=== PATIENT | female | born 1980 | race Caucasian/White ===

== ENCOUNTER 2017-11-08 02:30 | Inpatient (IN) ==
[2017-11-08] MEDS ORDERED: Acetaminophen 325 MG TABLET PO PRN (04:22)
[2017-11-08] MEDS ORDERED: Ipratropium/Albuterol Neb 3 ML IH PRN (04:22)
[2017-11-08] MEDS ORDERED: Ondansetron 4 MG/2 ML VIAL IVP PRN (04:23)
[2017-11-08] MEDS ORDERED: Naloxone 0.4 MG/ML INJ IVP PRN (04:23)
--- NOTE | 2017-11-08 04:36 | Internal Med History&Physical ---
Date of Encounter: 11/08/17 Time of Encounter: 04:33 Assessment and Plan (1) Abdominal pain Current visit: No Status: Acute Epigastric and right upper quadrant pain concerning for possible symptomatic acute cholecystitis The patient has severe allergy to penicillins and ciprofloxacin Start Invanz Morphine and Toradol for pain, nothing by mouth, order ultrasound of the right upper quadrant Surgery to follow up Protonix IV for GI prophylaxis and subcutaneous heparin for DVT prophylaxis. Patient will be admitted for observation. Full code. Time spent on this admission 40 minutes Qualifiers: Abdominal location: right upper quadrant Qualified Code(s): R10.11 - Right upper quadrant pain (2) SIRS (systemic inflammatory response syndrome) Current visit: Yes Status: Acute Possibly related to cholecystitis, may discontinue antibiotics if infection not confirmed (3) Transaminitis Current visit: Yes Status: Acute (4) Dehydration Current visit: Yes Status: Acute (5) Depression Current visit: Yes Status: Acute Qualifiers: Depression Type: unspecified Qualified Code(s): F32.9 - Major depressive disorder, single episode, unspecified (6) Iron deficiency Current visit: No Status: Chronic Internal Medicine - H&P: HPI Chief complaint: Abdominal pain Admitted From: Emergency Dept History of present illness: Ms. Hill is a 37 year old female with a past medical history of anxiety, endometriosis, went to the ER at [facility] complaining of abdominal pain that started 1-1/2 weeks ago but got worse yesterday 10 out of 10 in intensity mainly epigastric and radiated to the right upper quadrant and sometimes to the left. The pain got worse after 45 minutes of eating described as stabbing and sharp. They are physician from [facility] called the surgeon photovoltaic fabrication technician who recommended transferring to this hospital in order to have an ultrasound as the CT scan of the abdomen was not able to demonstrate any acute pathology other than a distended gallbladder. The cell count is 15.7 potassium 3.5 AST 160 ALT 84 alkaline phosphatase 154 heart rate was 111, blood pressure 141/103. The patient received Toradol, Zofran, morphine, Flagyl and Protonix. Still complaining of pain and had episodes of nausea and vomiting. She is dehydrated Past Med Surg Social Fam HX - Past Medical History Medical history: asthma, GERD, other (Iron deficiency anemia, endometriosis) Psychiatric history: anxiety, depression - Past Surgical History Surgical History: , other (Dental surgery) - Social History Smoking Status: Never smoker Smokeless Tobacco Status: No Alcohol use: none Drug use: none - Family History Mother Adopted: No Family Member Ethnicity: Non- Living Status: Still Living Hx Family Cardiac Disorders: No Hx Family Respiratory Disorders: Yes (asthma) Hx Family Cancer: No Hx Family GI Disorders: No Hx Family Endocrine Disorder: No Hx Family Neuromuscular Disorders: No Hx Family Neurologic Disorders: No Hx Family HEENT Disorders: No Hx Family Autoimmune Disorders: No - Additional Family History Additional family history: Mother with prediabetes Internal Medicine - H&P: Meds Cetirizine HCl [Zyrtec] 20 mg PO DAILY 05/09/16 [History] FLUoxetine HCl [Prozac] 40 mg PO DAILY 05/09/16 [History] Albuterol Sulfate [Albuterol Inhaler] 2 puff IH Q6HR PRN 11/07/17 [History] Fluticasone/Salmeterol [Advair 100-50 Diskus] 1 each IH DAILY 11/07/17 [History] 3 Allergy/AdvReac Type Severity Reaction Status Date / Time ciprofloxacin Allergy Severe Anaphylaxis Verified 11/07/17 21:57 Penicillins Allergy Severe Anaphylaxis Verified 11/07/17 21:57 All Systems PM: A 10-system review of systems was performed and is negative for pertinent findings except as documented above in the HPI. Review of systems: Abdominal pain, other systems out of the 10 review of were negative - Constitutional Vitals: Temp Pulse Resp BP Pulse Ox 97.6 F 74 17 132/90 98 11/08/17 04:07 11/08/17 04:07 11/08/17 04:07 11/08/17 04:07 11/08/17 04:07 General appearance: Present: A&O X 3, morbidly obese - Head Head exam: Present: atraumatic, normocephalic - Eye Eye exam: Present: PERRL, conjuntiva pink, sclera anicteric Pupils: Present: PERRL - Neck Neck exam general surgery: Present: supple, trachea midline. Absent: lymphadenopathy - Respiratory Respiratory exam: Present: CTAB. Absent: accessory muscle use, rales, rhonchi, wheezes - Cardiovascular Cardiovascular exam: Present: RRR, +S1, +S2. Absent: diastolic murmur, gallop, rubs, systolic murmur - GI/Abdominal GI/Abdominal exam: Present: normal bowel sounds, rebound, soft, tenderness ( Right upper quadrant tenderness, positive rebound), no peritoneal signs. Absent : distended - Extremities Exam Extremities exam: Present: warm, radial pulses palpable and symmetrical. Absent : calf tenderness, cyanotic, pedal edema - Neurological Exam Neurological exam: Present: CN II-XII intact, oriented X3, no focal deficits. Absent: pronater drift, facial droop, speech deficit - Skin Skin exam: Present: dry, intact
[2017-11-08] MEDS: Ketorolac 30 MG/ML VIAL IVP PRN ×2 (06:28→13:16)
[2017-11-08] MEDS: *HR* Heparin 5,000 UNIT/ML VIAL SQ SCH ×3 (06:29→21:35)
[2017-11-08] MEDS: Ertapenem 1,000 MG in Water for inj. (sterile) 20 ML 10 ML IVP SCH (06:34)
[2017-11-08] MEDS: FLUoxetine 20 MG CAPSULE PO SCH (08:36)
[2017-11-08] MEDS: Pantoprazole 40 MG VIAL IVP SCH (08:36)
[2017-11-08 09:07] LABS: Basophils % 0.4 %; Eosinophils # 0.9 K/mcL (0.0-0.6); Eosinophils % 9.9 %; Hematocrit 34.9 % (35.3-44.9); Hemoglobin 10.6 g/dL (11.5-15.4); Immature Granulocytes % 0.3 % (0-4); Immature Platelets 3.2 % (1.1-6.1); Lymphocytes # 1.5 K/mcL (0.6-4.6); Lymphocytes % 16.7 %; Mean Corpuscular HGB Conc 30.4 g/dL (31.6-35.5); Mean Corpuscular Hemoglobin 23.7 pg (28.0-33.3); Mean Corpuscular Volume 78.1 fL (83.0-100.0); Mean Platelet Volume 10.1 fL (9.4-12.4); Monocytes # 0.7 K/mcL (0.0-1.3); Monocytes % 7.4 %; Platelet Count 326 K/mcL (140-400); Red Blood Count 4.47 M/mcL (3.82-4.97); Red Cell Distribution Width 21.9 % (11.5-14.5); Segmented Neutrophils % 65.3 %
[2017-11-08 09:33] LABS: Alanine Aminotransferase 143 Units/L (7-52); Albumin 3.6 g/dL (3.5-5.7); Albumin/Globulin Ratio 1.4 (1.1-2.2); Alkaline Phosphatase 166 Units/L (34-104); Aspartate Amino Transferase 198 Units/L (13-39); BUN/Creatinine Ratio 8 (6-26); Bilirubin,Total 1.4 mg/dL (0.3-1.0); Blood Urea Nitrogen 7 mg/dL (6-20); Calcium 8.3 mg/dL (8.6-10.3); Carbon Dioxide 25 mEq/L (23-29); Chloride 108 mEq/L (98-107); Globulin 2.5 g/dL (2.4-3.5); Glucose 90 mg/dL (70-105); Osmolality,Calculated 284 (280-300); Potassium 3.7 mEq/L (3.5-5.1); Sodium 138 mEq/L (136-145); Total Protein 6.1 g/dL (6.4-8.9); eGFR For African Americans > 60 (> 60); eGFR For Non-African Americans > 60 (> 60)
[2017-11-08] MEDS: Ondansetron 4 MG/2 ML VIAL IVP PRN ×2 (14:23→21:42)
--- NOTE | 2017-11-08 15:58 | General Surgery Consult Note ---
<Jodi Christensen - Last Filed: 11/08/17 15:47> Date of Encounter: 11/08/17 Time of Encounter: 06:55 Assessment and Plan (1) Acalculous cholecystitis Current Visit: Yes Status: Acute Acalculous cholecysititis is most likely per CT findings showing no stones. Concern for appropriate function of gallbladder. CT abdomen at [facility] showed a distended gallbladder but no other acute pathology Patient has epigastric and RUQ pain, nausea, vomiting afebrile, WBC WNL 9.2 improved AST 198, ALT 143, total bili 1.4, alk phos 166 hepatobiliary scan ordered Ultrasound ordered IV ertapenem NPO pain control re-check CMP History of Present Illness Consult date: 11/08/17 Reason for consult: abdominal pain Requesting physician: Yadiel Luis History of present illness: Ms. Hill is a 37yo female with a past medical history of who presented to [facility] complaining of abdominal pain for about a week and a half that has progressively worsened. The pain is localized in her epigastric and right upper quadrant. She describes as sharp. Nothing makes a better. She admits to nausea, vomiting. Denied chest pain, shortness of breath, fever, chills. She has never had this before. She was a transfer from [facility] ER where CT scan of the abdomen showed no acute pathology other than a distended gallbladder. They transferred her for further workup. Lab work there showed WBC 15.7, AST 160 , AST 160, ALT 84, alkaline phosphatase 154. Past Med Surg Social Fam HX - Past Medical History Medical history: asthma, GERD, other (Iron deficiency anemia, endometriosis) Psychiatric history: anxiety, depression - Past Surgical History Surgical History: , other (Dental surgery) - Social History Smoking Status: Never smoker Smokeless Tobacco Status: No Alcohol use: none Drug use: none - Family History Father Living Status: Still Living Grandmother Living Status: Cause of : amyloidosis gallbladder/liver Mother Adopted: No Family Member Ethnicity: Non- Living Status: Still Living Hx Family Cardiac Disorders: No Hx Family Respiratory Disorders: Yes (asthma) Hx Family Cancer: No Hx Family GI Disorders: No Hx Family Endocrine Disorder: No Hx Family Neuromuscular Disorders: No Hx Family Neurologic Disorders: No Hx Family HEENT Disorders: No Hx Family Autoimmune Disorders: No Medications and Allergies Cetirizine HCl [Zyrtec] 10 mg PO DAILY 05/09/16 [History] FLUoxetine HCl [Prozac] 40 mg PO BID 05/09/16 [History] Albuterol Sulfate [Albuterol Inhaler] 2 puff IH Q6HR PRN 11/07/17 [History] Fluticasone/Salmeterol [Advair Hfa 230-21 Mcg Inhaler] 1 puff IH DAILY 11/08/17 [History] Lisinopril [Zestril] 5 mg PO DAILY 11/08/17 [History] Norethindrone-Ethinyl Estrad [Alyacen 1-35-28 Tablet] 1 tab PO DAILY 11/08/17 [ History] 3 Allergy/AdvReac Type Severity Reaction Status Date / Time ciprofloxacin Allergy Severe Anaphylaxis Verified 11/07/17 21:57 Penicillins Allergy Severe Anaphylaxis Verified 11/07/17 21:57 Review of Systems All systems PM: A 10-system review of systems was performed and is negative for pertinent findings except as documented above in the HPI. - Constitutional no chills, no fever(s) - Cardiovascular no chest pain - Respiratory no cough, no dyspnea - Gastrointestinal abdominal pain, nausea, vomiting, no constipation, no diarrhea, no melena - Genitourinary Genitourinary: no dysuria General Surgery Exam Initial Vital Signs Temp Pulse Resp BP Pulse Ox 97.6 F 74 17 132/90 98 11/08/17 04:07 11/08/17 04:07 11/08/17 04:07 11/08/17 04:07 11/08/17 04:07 - General physical appearance well developed, well nourished, moderate distress - Eyes normal ocular movement. negative: icteric - Respiratory normal expansion, clear to percussion, clear to auscultation - Cardiovascular Cardiovascular exam: Present: RRR - Abdomen Abdomen general surgery: Present: bowel sounds present, soft, tender. Absent: guarding Abdominal Tenderness: Present: epigastic, RUQ - Neurologic Present: normal coordination - Psychiatric Psychiatric general surgery: Present: A&Ox3 Exam Initial Vital Signs Temp Pulse Resp BP Pulse Ox 97.6 F 74 17 132/90 98 11/08/17 04:07 11/08/17 04:07 11/08/17 04:07 11/08/17 04:07 11/08/17 04:07 Results - Labs 11/08/17 08:49 11/08/17 08:49 Abnormal lab results Hgb 10.6 g/dL (11.5-15.4) L 11/08/17 08:49 Hct 34.9 % (35.3-44.9) L 11/08/17 08:49 MCV 78.1 fL (83.0-100.0) L 11/08/17 08:49 MCH 23.7 pg (28.0-33.3) L 11/08/17 08:49 MCHC 30.4 g/dL (31.6-35.5) L 11/08/17 08:49 RDW 21.9 % (11.5-14.5) H 11/08/17 08:49 Eosinophils # 0.9 K/mcL (0.0-0.6) H 11/08/17 08:49 Chloride 108 mEq/L (98-107) H 11/08/17 08:49 Calcium 8.3 mg/dL (8.6-10.3) L 11/08/17 08:49 Total Bilirubin 1.4 mg/dL (0.3-1.0) H 11/08/17 08:49 AST 198 Units/L (13-39) H 11/08/17 08:49 ALT 143 Units/L (7-52) H 11/08/17 08:49 Alkaline Phosphatase 166 Units/L (34-104) H 11/08/17 08:49 Serum Total Protein 6.1 g/dL (6.4-8.9) L 11/08/17 08:49 Diabetes panel 11/08/17 Range/Units 08:49 Sodium 138 (136-145) mEq/L Potassium 3.7 (3.5-5.1) mEq/L Chloride 108 H (98-107) mEq/L Carbon Dioxide 25 (23-29) mEq/L BUN 7 (6-20) mg/dL Creatinine 0.84 (0.60-1.20) mg/dL Glucose 90 (70-105) mg/dL Calcium 8.3 L (8.6-10.3) mg/dL AST 198 H (13-39) Units/L ALT 143 H (7-52) Units/L Alkaline Phosphatase 166 H (34-104) Units/L Albumin 3.6 (3.5-5.7) g/dL Calcium panel 11/08/17 Range/Units 08:49 Calcium 8.3 L (8.6-10.3) mg/dL Albumin 3.6 (3.5-5.7) g/dL Pituitary panel 11/08/17 Range/Units 08:49 Sodium 138 (136-145) mEq/L Potassium 3.7 (3.5-5.1) mEq/L Chloride 108 H (98-107) mEq/L Carbon Dioxide 25 (23-29) mEq/L BUN 7 (6-20) mg/dL Creatinine 0.84 (0.60-1.20) mg/dL Glucose 90 (70-105) mg/dL Calcium 8.3 L (8.6-10.3) mg/dL Adrenal panel 11/08/17 Range/Units 08:49 Sodium 138 (136-145) mEq/L Potassium 3.7 (3.5-5.1) mEq/L Chloride 108 H (98-107) mEq/L Carbon Dioxide 25 (23-29) mEq/L BUN 7 (6-20) mg/dL Creatinine 0.84 (0.60-1.20) mg/dL Glucose 90 (70-105) mg/dL Calcium 8.3 L (8.6-10.3) mg/dL Total Bilirubin 1.4 H (0.3-1.0) mg/dL AST 198 H (13-39) Units/L ALT 143 H (7-52) Units/L Alkaline Phosphatase 166 H (34-104) Units/L Albumin 3.6 (3.5-5.7) g/dL All other labs normal. Consult Discharge Plan - Plan Referrals: Maryellen Hill, [employer]ATHER [Primary Care Provider] - <Lino Vazquez - Last Filed: 11/08/17 18:03> Date of Encounter: 11/08/17 Review of Systems All systems PM: A 10-system review of systems was performed and is negative for pertinent findings except as documented above in the HPI. General Surgery Exam Initial Vital Signs Temp Pulse Resp BP Pulse Ox 97.6 F 74 17 132/90 98 11/08/17 04:07 11/08/17 04:07 11/08/17 04:07 11/08/17 04:07 11/08/17 04:07 Exam Initial Vital Signs Temp Pulse Resp BP Pulse Ox 97.6 F 74 17 132/90 98 11/08/17 04:07 11/08/17 04:07 11/08/17 04:07 11/08/17 04:07 11/08/17 04:07 Results - Labs 11/08/17 08:49 11/08/17 08:49 Abnormal lab results Hgb 10.6 g/dL (11.5-15.4) L 11/08/17 08:49 Hct 34.9 % (35.3-44.9) L 11/08/17 08:49 MCV 78.1 fL (83.0-100.0) L 11/08/17 08:49 MCH 23.7 pg (28.0-33.3) L 11/08/17 08:49 MCHC 30.4 g/dL (31.6-35.5) L 11/08/17 08:49 RDW 21.9 % (11.5-14.5) H 11/08/17 08:49 Eosinophils # 0.9 K/mcL (0.0-0.6) H 11/08/17 08:49 Chloride 108 mEq/L (98-107) H 11/08/17 08:49 Calcium 8.3 mg/dL (8.6-10.3) L 11/08/17 08:49 Total Bilirubin 1.4 mg/dL (0.3-1.0) H 11/08/17 08:49 AST 198 Units/L (13-39) H 11/08/17 08:49 ALT 143 Units/L (7-52) H 11/08/17 08:49 Alkaline Phosphatase 166 Units/L (34-104) H 11/08/17 08:49 Serum Total Protein 6.1 g/dL (6.4-8.9) L 11/08/17 08:49 Diabetes panel 11/08/17 Range/Units 08:49 Sodium 138 (136-145) mEq/L Potassium 3.7 (3.5-5.1) mEq/L Chloride 108 H (98-107) mEq/L Carbon Dioxide 25 (23-29) mEq/L BUN 7 (6-20) mg/dL Creatinine 0.84 (0.60-1.20) mg/dL Glucose 90 (70-105) mg/dL Calcium 8.3 L (8.6-10.3) mg/dL AST 198 H (13-39) Units/L ALT 143 H (7-52) Units/L Alkaline Phosphatase 166 H (34-104) Units/L Albumin 3.6 (3.5-5.7) g/dL Calcium panel 11/08/17 Range/Units 08:49 Calcium 8.3 L (8.6-10.3) mg/dL Albumin 3.6 (3.5-5.7) g/dL Pituitary panel 11/08/17 Range/Units 08:49 Sodium 138 (136-145) mEq/L Potassium 3.7 (3.5-5.1) mEq/L Chloride 108 H (98-107) mEq/L Carbon Dioxide 25 (23-29) mEq/L BUN 7 (6-20) mg/dL Creatinine 0.84 (0.60-1.20) mg/dL Glucose 90 (70-105) mg/dL Calcium 8.3 L (8.6-10.3) mg/dL Adrenal panel 11/08/17 Range/Units 08:49 Sodium 138 (136-145) mEq/L Potassium 3.7 (3.5-5.1) mEq/L Chloride 108 H (98-107) mEq/L Carbon Dioxide 25 (23-29) mEq/L BUN 7 (6-20) mg/dL Creatinine 0.84 (0.60-1.20) mg/dL Glucose 90 (70-105) mg/dL Calcium 8.3 L (8.6-10.3) mg/dL Total Bilirubin 1.4 H (0.3-1.0) mg/dL AST 198 H (13-39) Units/L ALT 143 H (7-52) Units/L Alkaline Phosphatase 166 H (34-104) Units/L Albumin 3.6 (3.5-5.7) g/dL All other labs normal. - Attending Attestation I examined this patient and my medical decision-making was reviewed with the Resident Physician. I agree with the documented findings, disposition and treatment plan as described except to the extent set forth below. The patient was seen and evaluated with resident during consultation. She gives a personal history of epigastric and right upper quadrant pain with no episodes of jaundice. CAT scan of the abdomen failed to demonstrate any abnormality with the gallbladder. There was no pericholecystic fluid or gallbladder wall thickening. There is no evidence of cholelithiasis. I think it is reasonable to proceed with ultrasound gallbladder as well as hepatobiliary testing to rule out acalculous cholecystitis Lino Vazquez MD FACS
[2017-11-09] MEDS: Ketorolac 30 MG/ML VIAL IVP PRN (04:04)
[2017-11-09] MEDS: Ondansetron 4 MG/2 ML VIAL IVP PRN ×3 (04:04→19:22)
[2017-11-09 04:51] LABS: Hematocrit 34.6 % (35.3-44.9); Hemoglobin 10.3 g/dL (11.5-15.4); Mean Corpuscular HGB Conc 29.8 g/dL (31.6-35.5); Mean Corpuscular Hemoglobin 23.6 pg (28.0-33.3); Mean Corpuscular Volume 79.2 fL (83.0-100.0); Mean Platelet Volume 10.1 fL (9.4-12.4); Platelet Count 317 K/mcL (140-400); Red Blood Count 4.37 M/mcL (3.82-4.97); Red Cell Distribution Width 22.2 % (11.5-14.5)
[2017-11-09 05:04] LABS: Alanine Aminotransferase 168 Units/L (7-52); Albumin 3.4 g/dL (3.5-5.7); Albumin/Globulin Ratio 1.5 (1.1-2.2); Alkaline Phosphatase 191 Units/L (34-104); Aspartate Amino Transferase 165 Units/L (13-39); BUN/Creatinine Ratio 9 (6-26); Bilirubin,Total 2.7 mg/dL (0.3-1.0); Blood Urea Nitrogen 7 mg/dL (6-20); Calcium 8.1 mg/dL (8.6-10.3); Carbon Dioxide 25 mEq/L (23-29); Chloride 108 mEq/L (98-107); Chol/HDL Ratio 5.7 (0-4.9); Cholesterol 178 mg/dL (< 200); Globulin 2.3 g/dL (2.4-3.5); Glucose 86 mg/dL (70-105); HDL Cholesterol 31 mg/dL (40-59); LDL Cholesterol,Calculated 128 mg/dL (0-99); Osmolality,Calculated 279 (280-300); Potassium 3.6 mEq/L (3.5-5.1); Sodium 136 mEq/L (136-145); Total Protein 5.7 g/dL (6.4-8.9); Triglycerides 97 mg/dL (< 150); eGFR For African Americans > 60 (> 60); eGFR For Non-African Americans > 60 (> 60)
[2017-11-09] MEDS: *HR* Heparin 5,000 UNIT/ML VIAL SQ SCH ×3 (05:19→20:53)
[2017-11-09] MEDS: *HR* Morphine 2 MG/ML SYRINGE IVP PRN ×2 (05:30→11:56)
[2017-11-09] MEDS: FLUoxetine 20 MG CAPSULE PO SCH (09:38)
[2017-11-09] MEDS: Ertapenem 1,000 MG in Water for inj. (sterile) 20 ML 10 ML IVP SCH (09:41)
[2017-11-09] MEDS: Pantoprazole 40 MG VIAL IVP SCH (09:41)
--- NOTE | 2017-11-09 09:52 | General Surgery Progress Note ---
<Jodi Christensen - Last Filed: 11/09/17 09:59> Date of Encounter: 11/09/17 Time of Encounter: 07:05 - Assessment and Plan (1) Acalculous cholecystitis Current Visit: Yes Status: Acute Acalculous cholecysititis is most likely per CT findings showing no cholelithiasis. CT abdomen at [place] showed a distended gallbladder but no other acute pathology Patient reports improved abdominal pain. Abdominal exam was soft, tender in RUQ and epigastric, no guarding afebrile, WBC WNL 7.6 improved Concern for possible hepatitis due to Worsening both total bili 2.7, alk phos 191 hepatobiliary scan ordered Ultrasound ordered hepatitis panel ordered IV ertapenem NPO pain control Objective Vital Signs - Last 8 Hours Temp Pulse Resp BP Pulse Ox 11/09/17 04:46 97.7 F 65 14 136/87 96 Intake and Output 11/08/17 11/09/17 11/09/17 23:59 07:59 15:59 Intake Total 1055 / 1055 0 / 0 Output Total 350 / 350 300 / 300 Balance 705 / 705 -300 / -300 Intake: IV Fluids 1005 / 1005 KCl 10 MEQ In 0.9 % Sodium 1005 / 1005 Chloride 1,000 ML @ 175 mls/hr IVC .Q5H45M [facility] Rx#:[id number] Oral 50 / 50 0 / 0 Output: Urine 350 / 350 300 / 300 Other: Meal npo Weight 112 kg Blood Glucose* 83 90 Patient Weight 11/09/17 23:59 Weight 112 kg - Labs 11/09/17 04:09 11/09/17 04:09 Diabetes panel 11/09/17 Range/Units 04:09 Sodium 136 (136-145) mEq/L Potassium 3.6 (3.5-5.1) mEq/L Chloride 108 H (98-107) mEq/L Carbon Dioxide 25 (23-29) mEq/L BUN 7 (6-20) mg/dL Creatinine 0.79 (0.60-1.20) mg/dL Glucose 86 (70-105) mg/dL Calcium 8.1 L (8.6-10.3) mg/dL AST 165 H (13-39) Units/L ALT 168 H (7-52) Units/L Alkaline Phosphatase 191 H (34-104) Units/L Albumin 3.4 L (3.5-5.7) g/dL Triglycerides 97 (< 150) mg/dL HDL Cholesterol 31 L (40-59) mg/dL Calcium panel 11/09/17 Range/Units 04:09 Calcium 8.1 L (8.6-10.3) mg/dL Albumin 3.4 L (3.5-5.7) g/dL Pituitary panel 11/09/17 Range/Units 04:09 Sodium 136 (136-145) mEq/L Potassium 3.6 (3.5-5.1) mEq/L Chloride 108 H (98-107) mEq/L Carbon Dioxide 25 (23-29) mEq/L BUN 7 (6-20) mg/dL Creatinine 0.79 (0.60-1.20) mg/dL Glucose 86 (70-105) mg/dL Calcium 8.1 L (8.6-10.3) mg/dL Adrenal panel 11/09/17 Range/Units 04:09 Sodium 136 (136-145) mEq/L Potassium 3.6 (3.5-5.1) mEq/L Chloride 108 H (98-107) mEq/L Carbon Dioxide 25 (23-29) mEq/L BUN 7 (6-20) mg/dL Creatinine 0.79 (0.60-1.20) mg/dL Glucose 86 (70-105) mg/dL Calcium 8.1 L (8.6-10.3) mg/dL Total Bilirubin 2.7 H (0.3-1.0) mg/dL AST 165 H (13-39) Units/L ALT 168 H (7-52) Units/L Alkaline Phosphatase 191 H (34-104) Units/L Albumin 3.4 L (3.5-5.7) g/dL Consult Discharge Plan - Plan Referrals: Maryellen Hill, [employer] [Primary Care Provider] - <Lino Vazquez - Last Filed: 11/10/17 08:58> Date of Encounter: 11/09/17 Objective Vital Signs - Last 8 Hours Temp Pulse Resp BP Pulse Ox 11/10/17 06:21 98.2 F 75 16 134/84 97 11/10/17 03:16 97.8 F 76 16 130/86 97 Intake and Output 11/09/17 11/10/17 11/10/17 23:59 07:59 15:59 Intake Total 1005 / 1005 1999 Output Total 650 / 650 1000 / 1000 Balance 355 / 355 1000 / 1000 Intake: IV Fluids 1005 / 1005 1999 KCl 10 MEQ In 0.9 % Sodium 1005 / 1005 1999 Chloride 1,000 ML @ 175 mls/hr IVC .Q5H45M [facility] Rx#:[id number] Output: Urine 450 / 450 1000 / 1000 Emesis 200 / 200 Other: # Bowel Movements 0 Blood Glucose* 77 - Labs 11/10/17 06:41 11/10/17 06:41 Diabetes panel 11/10/17 Range/Units 06:41 Sodium 136 (136-145) mEq/L Potassium 3.8 (3.5-5.1) mEq/L Chloride 108 H (98-107) mEq/L Carbon Dioxide 22 L (23-29) mEq/L BUN 6 (6-20) mg/dL Creatinine 0.74 (0.60-1.20) mg/dL Glucose 77 (70-105) mg/dL Calcium 8.2 L (8.6-10.3) mg/dL AST 107 H (13-39) Units/L ALT 145 H (7-52) Units/L Alkaline Phosphatase 212 H (34-104) Units/L Albumin 3.2 L (3.5-5.7) g/dL Calcium panel 11/10/17 Range/Units 06:41 Calcium 8.2 L (8.6-10.3) mg/dL Albumin 3.2 L (3.5-5.7) g/dL Pituitary panel 11/10/17 Range/Units 06:41 Sodium 136 (136-145) mEq/L Potassium 3.8 (3.5-5.1) mEq/L Chloride 108 H (98-107) mEq/L Carbon Dioxide 22 L (23-29) mEq/L BUN 6 (6-20) mg/dL Creatinine 0.74 (0.60-1.20) mg/dL Glucose 77 (70-105) mg/dL Calcium 8.2 L (8.6-10.3) mg/dL Adrenal panel 11/10/17 Range/Units 06:41 Sodium 136 (136-145) mEq/L Potassium 3.8 (3.5-5.1) mEq/L Chloride 108 H (98-107) mEq/L Carbon Dioxide 22 L (23-29) mEq/L BUN 6 (6-20) mg/dL Creatinine 0.74 (0.60-1.20) mg/dL Glucose 77 (70-105) mg/dL Calcium 8.2 L (8.6-10.3) mg/dL Total Bilirubin 3.0 H (0.3-1.0) mg/dL AST 107 H (13-39) Units/L ALT 145 H (7-52) Units/L Alkaline Phosphatase 212 H (34-104) Units/L Albumin 3.2 L (3.5-5.7) g/dL - Attending Attestation I examined this patient and my medical decision-making was reviewed with the Resident Physician. I agree with the documented findings, disposition and treatment plan as described except to the extent set forth below. The patient is seen and evaluated with resident. The patient appears to have nonvisualization of the gallbladder consistent with acalculous cholecystitis. We will plan laparoscopic cholecystectomy and intraoperative cholangiogram tomorrow. Lino Vazquez MD FACS
[2017-11-09 10:45] LABS: Hepatitis A Antibody IgM Nonreactive (Nonreactive); Hepatitis B Core IgM Nonreactive (Nonreactive); Hepatitis B Surface Antigen Nonreactive (Nonreactive); Hepatitis C Virus Antibody Nonreactive (Nonreactive)
--- NOTE | 2017-11-09 13:22 | Internal Med Progress Note ---
Date of Encounter: 11/09/17 Time of Encounter: 11:00 - Assessment and plan (1) Acalculous cholecystitis Current Visit: Yes Status: Acute Assessment and plan: Patient is nothing by mouth. Surgery is following. Liver enzymes are noted to be elevated. Continue with control. Continue with IV fluids. Continue with prophylactic antibiotics with ertapenem. She has planned a HIDA scan and right upper quadrant ultrasound. Follow-up in surgery's recommendations. (2) Depression Current Visit: Yes Status: Acute Assessment and plan: Continue home antidepressants. Qualifiers: Depression Type: unspecified Qualified Code(s): F32.9 - Major depressive disorder, single episode, unspecified (3) DVT prophylaxis Current Visit: Yes Status: Acute Assessment and plan: Heparin subcutaneous - Subjective Interval history: Patient seen and examined. She was admitted with abdominal pain in the right upper quadrant area. Seen by surgery and has plans for HIDA scan and right upper quadrant ultrasound. Pain is adequately controlled. She is nothing by mouth. - Constitutional Vitals: Temp Pulse Resp BP Pulse Ox 97.7 F 65 14 136/87 96 11/09/17 04:46 11/09/17 04:46 11/09/17 04:46 11/09/17 04:46 11/09/17 04:46 General appearance: Present: A&O X 3, morbidly obese Exam: GEN: NAD CVS: RRR. S1, S2, No m/r/g RESP: CTAB ABD: Right upper quadrant tenderness., ND, +BS EXT: No edema. 2+ DP. No rashes NEURO: Nonfocal Internal Medicine: Result - Labs CBC & Chem 7: 11/09/17 04:09 11/09/17 04:09 Labs: Short CBC 11/09/17 Range/Units 04:09 WBC 7.6 (4.3-11.1) K/mcL Hgb 10.3 L (11.5-15.4) g/dL Hct 34.6 L (35.3-44.9) % Plt Count 317 (140-400) K/mcL BMP 11/09/17 04:09 Sodium 136 Potassium 3.6 Chloride 108 H Carbon Dioxide 25 BUN 7 Creatinine 0.79 Glucose 86 Calcium 8.1 L Liver Function 11/09/17 Range/Units 04:09 Total Bilirubin 2.7 H (0.3-1.0) mg/dL AST 165 H (13-39) Units/L ALT 168 H (7-52) Units/L Alkaline Phosphatase 191 H (34-104) Units/L Albumin 3.4 L (3.5-5.7) g/dL - Impressions Impressions Bile Acid Absorption NM 11/09/17 10:42 IMPRESSION: Nonvisualized gallbladder including after administration of IV morphine consistent with cyst duct obstruction/acute cholecystitis. The findings were sent to the [facility]iology [facility] at 1:14 pm on 11/09/2017to be communicated to a licensed caregiver. D/ / Marie Reynolds MD / Marie Reynolds MD Interpreting Provider: Marie Reynolds MD Consult Discharge Plan - Plan Referrals: Maryellen Hill, [employer] MANAGER [Primary Care Provider] -
[2017-11-09] MEDS ORDERED: *HR* Promethazine 25 MG/ML VIAL IVP ONE (13:53)
--- NOTE | 2017-11-09 14:01 | Event Note ---
Date of Encounter: 11/09/17 Time of Encounter: 13:54 Hepatobiliary scan resulted demonstrating cyst duct obstruction/ acute cholecystitis. The patient was informed of the results and that a cholecystectomy would be required. The complications were addressed with the patient and she stated a clear understanding. A consent form was signed by the patient. The patient may have clear liquids today and NPO at midnight. Tomorrow she is scheduled for a cholecystectomy.
[2017-11-09] MEDS: *HR* Promethazine 25 MG/ML VIAL IVP PRN (22:37)
[2017-11-10] MEDS: Ondansetron 4 MG/2 ML VIAL IVP PRN (03:31)
[2017-11-10] MEDS: Ketorolac 30 MG/ML VIAL IVP PRN (03:35)
[2017-11-10] MEDS: *HR* Heparin 5,000 UNIT/ML VIAL SQ SCH (05:59)
[2017-11-10 07:26] LABS: Basophils % 0.3 %; Eosinophils # 0.3 K/mcL (0.0-0.6); Eosinophils % 2.6 %; Hematocrit 33.7 % (35.3-44.9); Hemoglobin 10.4 g/dL (11.5-15.4); Immature Granulocytes % 0.7 % (0-4); Lymphocytes % 19.1 %; Mean Corpuscular HGB Conc 30.9 g/dL (31.6-35.5); Mean Corpuscular Hemoglobin 24.2 pg (28.0-33.3); Mean Corpuscular Volume 78.6 fL (83.0-100.0); Mean Platelet Volume 10.2 fL (9.4-12.4); Monocytes # 0.6 K/mcL (0.0-1.3); Monocytes % 6.1 %; Neutrophils # 7.4 K/mcL (1.6-8.9); Platelet Count 290 K/mcL (140-400); Red Blood Count 4.29 M/mcL (3.82-4.97); Red Cell Distribution Width 22.2 % (11.5-14.5); Segmented Neutrophils % 71.2 %
[2017-11-10 07:42] LABS: Alanine Aminotransferase 145 Units/L (7-52); Albumin 3.2 g/dL (3.5-5.7); Albumin/Globulin Ratio 1.3 (1.1-2.2); Alkaline Phosphatase 212 Units/L (34-104); Aspartate Amino Transferase 107 Units/L (13-39); BUN/Creatinine Ratio 8 (6-26); Blood Urea Nitrogen 6 mg/dL (6-20); Calcium 8.2 mg/dL (8.6-10.3); Carbon Dioxide 22 mEq/L (23-29); Chloride 108 mEq/L (98-107); Globulin 2.5 g/dL (2.4-3.5); Glucose 77 mg/dL (70-105); Osmolality,Calculated 278 (280-300); Potassium 3.8 mEq/L (3.5-5.1); Sodium 136 mEq/L (136-145); Total Protein 5.7 g/dL (6.4-8.9); eGFR For African Americans > 60 (> 60); eGFR For Non-African Americans > 60 (> 60)
[2017-11-10] MEDS: *HR* Promethazine 25 MG/ML VIAL IVP PRN (08:03)
[2017-11-10] MEDS: Ertapenem 1,000 MG in Water for inj. (sterile) 20 ML 10 ML IVP SCH (08:03)
[2017-11-10] MEDS: Pantoprazole 40 MG VIAL IVP SCH (08:04)
[2017-11-10] MEDS ORDERED: *HR* HYDROmorphone (PF) 1 MG/ML SYRINGE IVP ONE ×2 (08:55→17:10)
--- NOTE | 2017-11-10 08:56 | Internal Med Progress Note ---
Date of Encounter: 11/10/17 Time of Encounter: 08:52 - Assessment and plan (1) Acalculous cholecystitis Current Visit: Yes Status: Acute Assessment and plan: Patient is nothing by mouth. HIDA scan and abdominal ultrasound results are noted. Plans for laparoscopic cholecystectomy later. Continue with pain control. Continue with IV fluids. Continue with prophylactic antibiotics with ertapenem. She has planned a HIDA scan and right upper quadrant ultrasound. (2) Depression Current Visit: Yes Status: Acute Assessment and plan: Continue home antidepressants. Qualifiers: Depression Type: unspecified Qualified Code(s): F32.9 - Major depressive disorder, single episode, unspecified (3) DVT prophylaxis Current Visit: Yes Status: Acute Assessment and plan: Heparin subcutaneous - Subjective Interval history: Patient seen and examined. She continues to have right upper quadrant pain. She is nauseous as I am talking her in the room. She says her pain is about 6 out of 10. She has been afebrile. Her pain is usually adequately controlled however this morning it is significant. She is nothing by mouth in anticipation for a laparoscopic cholecystectomy later. - Constitutional Vitals: Temp Pulse Resp BP Pulse Ox 98.2 F 75 16 134/84 97 11/10/17 06:21 11/10/17 06:21 11/10/17 06:21 11/10/17 06:21 11/10/17 06:21 General appearance: Present: A&O X 3, morbidly obese Exam: GEN: NAD CVS: RRR. S1, S2, No m/r/g RESP: CTAB ABD: Right upper quadrant tenderness., ND, +BS EXT: No edema. 2+ DP. No rashes NEURO: Nonfocal Internal Medicine: Result - Labs CBC & Chem 7: 11/10/17 06:41 11/10/17 06:41 Labs: Short CBC 11/10/17 Range/Units 06:41 WBC 10.4 (4.3-11.1) K/mcL Hgb 10.4 L (11.5-15.4) g/dL Hct 33.7 L (35.3-44.9) % Plt Count 290 (140-400) K/mcL Neutrophils # 7.4 (1.6-8.9) K/mcL BMP 11/10/17 06:41 Sodium 136 Potassium 3.8 Chloride 108 H Carbon Dioxide 22 L BUN 6 Creatinine 0.74 Glucose 77 Calcium 8.2 L Liver Function 11/10/17 Range/Units 06:41 Total Bilirubin 3.0 H (0.3-1.0) mg/dL AST 107 H (13-39) Units/L ALT 145 H (7-52) Units/L Alkaline Phosphatase 212 H (34-104) Units/L Albumin 3.2 L (3.5-5.7) g/dL - Impressions Impressions Bile Acid Absorption NM 11/09/17 10:42 IMPRESSION: Nonvisualized gallbladder including after administration of IV morphine consistent with cyst duct obstruction/acute cholecystitis. The findings were sent to the [facility]iology [facility] at 1:14 pm on 11/09/2017to be communicated to a licensed caregiver. D/ / Marie Reynolds MD / Marie Reynolds MD Interpreting Provider: Marie Reynolds MD Abdomen Ultrasound 11/09/17 12:30 IMPRESSION: There is a 6 mm echogenic focus at the fundus of the gallbladder. Findings may represent non mobile stone versus a polyp. A polyp of this size would be followed with serial ultrasound evaluation at 3, 6 and 12 months. There is dilation of the common bile duct which measures approximately 7 mm. Please correlate with patient's liver function tests and bilirubin level. If these are abnormal or if clinically indicated, follow-up could be considered with a MRCP. D/ / 11/09/2017 13:37:57 Wayne Obregon MD / karen Interpreting Provider: Wayne Obregon MD Consult Discharge Plan - Plan Referrals: Maryellen Hill, KINZA [Primary Care Provider] -
[2017-11-10] MEDS: *HR* Morphine 2 MG/ML SYRINGE IVP PRN ×3 (11:50→22:47)
[2017-11-10] MEDS ORDERED: Lidocaine -MPF 2% 2 ML VIAL ONE ×2 (13:22→13:26)
[2017-11-10] MEDS ORDERED: Dexamethasone 4 MG/ML VIAL ONE ×2 (13:22→15:06)
[2017-11-10] MEDS ORDERED: *HR* Rocuronium Bromide 50 MG/5 ML VIAL ONE (13:22)
[2017-11-10] MEDS ORDERED: Ondansetron 4 MG/2 ML VIAL ONE ×2 (13:22→15:06)
[2017-11-10] MEDS ORDERED: *HR* Propofol 200 MG/20 ML VIAL IVP ONE (13:22)
[2017-11-10] MEDS ORDERED: *HR* Succinylcholine 200 MG/10 ML VIAL IVP ONE (13:22)
[2017-11-10] MEDS ORDERED: Scopolamine Patch 1.5 MG PATCH.TD72 TD ONE (13:36)
[2017-11-10] MEDS ORDERED: Albuterol 2.5 MG/3 ML NEBULIZER ONE (13:40)
--- NOTE | 2017-11-10 13:40 | Anesthesia Evaluation PreOp ---
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 Significant HX Other Medical History: Denies Any Significant HX Anesthesia History: No Prior Anesthetic Complications, Past Anesthesia Alcohol Use: none Drug use: none Medications and Allergies Cetirizine HCl [Zyrtec] 10 mg PO DAILY 05/09/16 [History] FLUoxetine HCl [Prozac] 40 mg PO BID 05/09/16 [History] Albuterol Sulfate [Albuterol Inhaler] 2 puff IH Q6HR PRN 11/07/17 [History] Fluticasone/Salmeterol [Advair Hfa 230-21 Mcg Inhaler] 1 puff IH DAILY 11/08/17 [History] Lisinopril [Zestril] 5 mg PO DAILY 11/08/17 [History] Norethindrone-Ethinyl Estrad [Alyacen 1-35-28 Tablet] 1 tab PO DAILY 11/08/17 [ History] 3 Allergy/AdvReac Type Severity Reaction Status Date / Time ciprofloxacin Allergy Severe Anaphylaxis Verified 11/07/17 21:57 Penicillins Allergy Severe Anaphylaxis Verified 11/07/17 21:57 - Meds/Allergy Pre-op Review Medications Reviewed: Yes Allergies Reviewed: Yes Beta Blockers on Current Med List: No Anesthesia Results - Labs 11/10/17 06:41 11/10/17 06:41 Anesthesia Exam Selected Entries 11/10/17 10:00 Temperature 98.6 F Pulse Rate 89 Respiratory Rate 16 Blood Pressure 145/80 O2 Sat by Pulse Oximetry 92 Weight: 112 kg NPO (# of Hours): over 8 hours - HEENT Pupil (Motor): Pupils equal Mallampati: II Teeth: Edentulous Oral Opening: Greater than 3 - Cardiac Rhythm: Regular Murmur: None - Pulmonary Breath Sounds: bilateral Clear Respiratory Effort: Symmetrical Anesthesia Assess/Plan ASA Score: 2 Modified Denisha Scale for Level of Consciousness: Cooperative, oriented, and tranquil Anesthetic Plan: General Monitoring Plan: Standard Monitors Recovery Plan: PACU
[2017-11-10] MEDS ORDERED: cefOXitin 1,000 MG, 0.9 % Sodium Chloride 1,000 ML IR ONE ×2 (14:00→17:10)
[2017-11-10] MEDS ORDERED: *HR* Midazolam HCl 2 MG/2 ML VIAL ONE (14:11)
[2017-11-10] MEDS ORDERED: *HR* FentaNYL (PF) 100 MCG/2 ML VIAL ONE (14:11)
[2017-11-10] MEDS ORDERED: CefOXitin 2,000 MG VIAL ONE (14:53)
[2017-11-10] MEDS ORDERED: *HR* HYDROmorphone 2 MG/ML SYRINGE ONE (15:05)
--- NOTE | 2017-11-10 15:26 | Operative Note ---
Date of procedure: 11/10/17 Pre-op diagnosis: Acute acalculous cholecystitis Post-op diagnosis: other (Obstructed gallbladder, obstructed distal common bile duct by cholangiogram) Procedure: Laparoscopic cholecystectomy, cholangiogram Anesthesia: DEBA Surgeon: Lino Vazquez Was there an blood bank assistant present: Yes Mind Reader: Clementina Man Estimated blood loss (cc): 25 Specimen: Gallbladder and contents Condition: stable Disposition: PACU Procedure in Detail: Laparoscopic cholecystectomy and intraoperative cholangiogram Operative procedure after informed consent and appropriate patient identification and timeout the patient was taken to the major operating suite and placed supine position given adequate general endotracheal anesthesia the abdomen is prepped and draped in sterile fashion utilizing ChloraPrep standard draping techniques timeout was taken patient is identified. I made a vertical midline incision below the umbilicus dissected down to level of fascia there are 2 traction stitches placed in the abdominal cavity was entered visually. A Garrett trocar was placed in the abdomen and the abdomen was insufflated to 15 mmHg pressure CO2 the gallbladder was visualized. A placement 11 port in the subxiphoid area and 2 5 mm ports in the subcostal area. The gallbladder was grasped and elevated. A variety of blunt and sharp dissection techniques were used to isolate the cystic duct and cystic artery. The cystic artery was controlled with 2 surgical clips proximally and one distally and it was divided I placed a surgical clip on the neck the gallbladder and obtained an intraoperative cholangiogram using 10 mL of Isovue. Intraoperative cholangiogram demonstrated distal common bile duct obstruction with no flow into the duodenum.. The cholangiocatheter was removed and the cystic duct was controlled with 2 surgical clips proximally and was divided the gallbladder was removed from the gallbladder fossae using electrocautery. The gallbladder was removed through the #11 port site. I replaced the #11 port and irrigated with copious amounts of antibiotic containing solution. There is no evidence of bleeding or bile leak. All trochars were removed. Fascia was closed with 0 Vicryl skin with 2-0 and 4-0 Vicryl She tolerated the procedure well and was transferred to recovery in stable condition. The patient will require postoperative treatment for distal common bile duct obstruction. I will recommend ERCP.
[2017-11-10] MEDS ORDERED: *HR* HYDROmorphone (PF) 1 MG/ML SYRINGE IVP PRN (15:54)
[2017-11-10] MEDS ORDERED: *HR* Promethazine 25 MG/ML VIAL IVP PRN ×2 (15:54→17:10)
--- NOTE | 2017-11-10 16:09 | Anesthesia Evaluation Post Op ---
Date of Encounter: 11/10/17 Time of Encounter: 16:09 - Vital Signs Vital Signs: Vital Signs - Last 8 Hours Temp Pulse Resp BP Pulse Ox 11/10/17 16:06 65 16 138/82 96 11/10/17 15:56 68 16 137/88 94 11/10/17 15:46 97.6 F 77 12 154/95 94 11/10/17 10:00 98.6 F 89 16 145/80 92 Intake and Output 11/10/17 11/10/17 11/10/17 07:59 15:59 23:59 Intake Total 1999 Output Total 1000 / 1000 1775 / 1775 Balance 1000 / 1000 -1775 / -1775 Intake: IV Fluids 1999 KCl 10 MEQ In 0.9 % Sodium 1999 Chloride 1,000 ML @ 175 mls/hr IVC .Q5H45M [facility] Rx#:[id number] Output: Urine 1000 / 1000 1750 / 1750 Estimated Blood Loss 25 / 25 Other: Meal npo # Bowel Movements 0 0 Blood Glucose* 77 72 - Lungs Lungs: Clear Ascult./Percussion - Airway Airway: Non-obstructed - Cardiovascular Regular Rate, Baseline Rhythm - Mental Status Mental Status: Alert & Oriented, Answers Appropriately - Pain Pain Scale: 0 Pain Scale used: Numeric (1 - 10) - Nausea Vomiting Nausea Vomiting: Not Present - Hydration Hydration: Tolerates oral liquids - Discharge PostOp Status: Transfer Patient to floor
[2017-11-10] MEDS: Albuterol 2.5 MG/3 ML NEBULIZER IH ONE (16:34)
--- NOTE | 2017-11-10 17:05 | Event Note ---
Date of Encounter: 11/10/17 Time of Encounter: 17:02 The patient is s/p Laparoscopic cholecystectomy and intraoperative cholangiogram. Intraoperative cholangiogram demonstrated distal common bile duct obstruction with no flow into the duodenum. Dr. Virgen was consulted and requested that the patient be NPO after midnight and he will take her for ERCP tomorrow.
[2017-11-10] MEDS ORDERED: Ipratropium/Albuterol Neb 3 ML IH PRN (17:10)
[2017-11-10] MEDS ORDERED: Acetaminophen 325 MG TABLET PO PRN (17:10)
[2017-11-10] MEDS ORDERED: Naloxone 0.4 MG/ML INJ IVP PRN (17:10)
[2017-11-11] MEDS: Ketorolac 30 MG/ML VIAL IVP PRN (02:08)
[2017-11-11] MEDS: *HR* Heparin 5,000 UNIT/ML VIAL SQ SCH ×3 (02:20→16:10)
[2017-11-11 07:03] LABS: Basophils % 0.2 %; Eosinophils % 0.1 %; Hematocrit 31.3 % (35.3-44.9); Hemoglobin 9.6 g/dL (11.5-15.4); Immature Granulocytes % 0.6 % (0-4); Lymphocytes # 1.8 K/mcL (0.6-4.6); Mean Corpuscular HGB Conc 30.7 g/dL (31.6-35.5); Mean Corpuscular Hemoglobin 24.1 pg (28.0-33.3); Mean Corpuscular Volume 78.4 fL (83.0-100.0); Mean Platelet Volume 9.8 fL (9.4-12.4); Monocytes # 0.8 K/mcL (0.0-1.3); Monocytes % 6.3 %; Neutrophils # 9.2 K/mcL (1.6-8.9); Platelet Count 255 K/mcL (140-400); Red Blood Count 3.99 M/mcL (3.82-4.97); Red Cell Distribution Width 22.9 % (11.5-14.5); Segmented Neutrophils % 77.8 %
--- NOTE | 2017-11-11 07:37 | General Surgery Progress Note ---
<Blayne Quinteros - Last Filed: 11/11/17 07:33> Date of Encounter: 11/11/17 Time of Encounter: 07:33 - Assessment and Plan (1) Acalculous cholecystitis Status: Acute POD #1 - lap cholecystectomy cholangiogram with Dr. Lino Vazquez. CT abdomen at [place] showed a distended gallbladder but no other acute pathology. Today patient is stable. Distal CBD is remains obstructed after yesterday's procedure , scheduled to have ERCP today. - ERCP scheduled today with Dr. Virgen - Diet - NPO - [facility] TID - Incentive spirometry q1hr while awake - supportive care and pain control - Morphine PRN Subjective Patient reports: no new complaints, feels better, no flatus, no bowel movement Objective Vital Signs - Last 8 Hours Temp Pulse Resp BP Pulse Ox 11/11/17 06:38 97.8 F 56 13 122/79 97 11/11/17 03:17 98.0 F 57 14 105/68 96 Intake and Output 11/10/17 11/10/17 11/11/17 15:59 23:59 07:59 Intake Total 0 / 0 1005 / 1005 Output Total 1775 / 1775 50 / 50 250 / 250 Balance -1775 / -1775 -50 / -50 755 / 755 Intake: IV Fluids 1005 / 1005 KCl 10 MEQ In 0.9 % Sodium 1005 / 1005 Chloride 1,000 ML @ 175 mls/hr IVC .Q5H45M [facility] Rx#:[id number] Oral 0 / 0 0 / 0 Output: Urine 1750 / 1750 50 / 50 250 / 250 Estimated Blood Loss 25 / 25 Other: Meal npo # Bowel Movements 0 Weight 112 kg Blood Glucose* 72 113 109 Patient Weight 11/11/17 23:59 Weight 112 kg - General physical appearance well developed, well nourished, no distress - Eyes normal ocular movement - ENT normal pinna, normal nares, normal mucosa, no hearing loss, no congestion - Respiratory normal expansion, normal respiratory effort, clear to percussion, clear to auscultation - Cardiovascular Cardiovascular exam: Present: RRR - Abdomen Abdomen: Present: bowel sounds present, soft, non tender - Incision Incision: Present: clean and dry, intact. Absent: draining, red, swollen, inflamed, erythema, purulent, indurated, serous, serosanguinous, open, approximated - Integumentary no rash, no growths, no abnormal pigmentation - Neurologic normal sensation - Psychiatric oriented to time, oriented to person, oriented to place, speech is normal, memory intact - Labs 11/10/17 06:41 11/10/17 06:41 Diabetes panel 11/10/17 Range/Units 06:41 Sodium 136 (136-145) mEq/L Potassium 3.8 (3.5-5.1) mEq/L Chloride 108 H (98-107) mEq/L Carbon Dioxide 22 L (23-29) mEq/L BUN 6 (6-20) mg/dL Creatinine 0.74 (0.60-1.20) mg/dL Glucose 77 (70-105) mg/dL Calcium 8.2 L (8.6-10.3) mg/dL AST 107 H (13-39) Units/L ALT 145 H (7-52) Units/L Alkaline Phosphatase 212 H (34-104) Units/L Albumin 3.2 L (3.5-5.7) g/dL Calcium panel 11/10/17 Range/Units 06:41 Calcium 8.2 L (8.6-10.3) mg/dL Albumin 3.2 L (3.5-5.7) g/dL Pituitary panel 11/10/17 Range/Units 06:41 Sodium 136 (136-145) mEq/L Potassium 3.8 (3.5-5.1) mEq/L Chloride 108 H (98-107) mEq/L Carbon Dioxide 22 L (23-29) mEq/L BUN 6 (6-20) mg/dL Creatinine 0.74 (0.60-1.20) mg/dL Glucose 77 (70-105) mg/dL Calcium 8.2 L (8.6-10.3) mg/dL Adrenal panel 11/10/17 Range/Units 06:41 Sodium 136 (136-145) mEq/L Potassium 3.8 (3.5-5.1) mEq/L Chloride 108 H (98-107) mEq/L Carbon Dioxide 22 L (23-29) mEq/L BUN 6 (6-20) mg/dL Creatinine 0.74 (0.60-1.20) mg/dL Glucose 77 (70-105) mg/dL Calcium 8.2 L (8.6-10.3) mg/dL Total Bilirubin 3.0 H (0.3-1.0) mg/dL AST 107 H (13-39) Units/L ALT 145 H (7-52) Units/L Alkaline Phosphatase 212 H (34-104) Units/L Albumin 3.2 L (3.5-5.7) g/dL Consult Discharge Plan - Plan Instructions: Laparoscopic Cholecystectomy (DC) Additional Instructions: General Surgical Discharge Instructions 1. No pushing, pulling, or lifting greater than 15 lbs for 2-4 weeks (depending upon procedure). 2. You may shower beginning today, but no tub baths, soaking, or swimming for 2 weeks. 3. You may resume driving when you are off narcotics and are safe to react in a car. 4. Take ibuprofen every 8 hours for discomfort. If this does not relieve discomfort, you may take the as needed Percocet. Take narcotics as directed. Do not take more narcotics then directed and do not share your narcotics with any other person. Do not drink alcohol while on narcotics. 5. Take stool softeners (Colace) or a water based laxative (Miralax) while taking narcotics. You may hold for loose stools. 6. Report any fevers greater than 100.5F, increase abdominal discomfort, drainage that looks like pus, increased redness or pain at the surgical site, or any vomiting. 7. Report any pain in the calves, shortness of breath, or rapid heartbeat. 8. Follow-up in the office as directed. 9. If you were prescribed antibiotics, do not stop them without talking to your provider. Referrals: Tigist Hinton CNP [Advanced Practice Nurse] - 11/27/17 9:00 am Prescriptions: Ondansetron ODT [Zofran ODT] 4 mg SL Q4HR PRN #15 tab.rapdis PRN Reason: Nausea OxyCODONE/APAP 5/325 [Percocet 5/325 MG] 1 each PO Q6HR PRN #28 tablet PRN Reason: Pain Ibuprofen [Motrin] 800 mg PO Q8HR #42 tablet Docusate [Colace] 100 mg PO BID #30 capsule <Lino Vazquez - Last Filed: 11/13/17 13:16> Date of Encounter: 11/11/17 Objective - Labs 11/12/17 05:10 11/12/17 05:10 - Attending Attestation I examined this patient and my medical decision-making was reviewed with the Resident Physician. I agree with the documented findings, disposition and treatment plan as described except to the extent set forth below. The patient is seen and evaluated and morning rounds with the resident. She is scheduled for ERCP to relieve distal common bile duct obstruction. Further treatment planning based on findings ERCP Lino Vazquez MD FACS
[2017-11-11 07:40] LABS: Alanine Aminotransferase 168 Units/L (7-52); Albumin 3.1 g/dL (3.5-5.7); Albumin/Globulin Ratio 1.3 (1.1-2.2); Alkaline Phosphatase 221 Units/L (34-104); Aspartate Amino Transferase 145 Units/L (13-39); BUN/Creatinine Ratio 10 (6-26); Bilirubin,Total 3.2 mg/dL (0.3-1.0); Blood Urea Nitrogen 7 mg/dL (6-20); Carbon Dioxide 26 mEq/L (23-29); Chloride 107 mEq/L (98-107); Globulin 2.4 g/dL (2.4-3.5); Sodium 136 mEq/L (136-145); Total Protein 5.5 g/dL (6.4-8.9); eGFR For African Americans > 60 (> 60); eGFR For Non-African Americans > 60 (> 60)
[2017-11-11 08:33] LABS: Glucose 105 mg/dL (70-105); Osmolality,Calculated 280 (280-300)
[2017-11-11] MEDS: *HR* Morphine 2 MG/ML SYRINGE IVP PRN ×2 (09:50→18:46)
[2017-11-11] MEDS: Ertapenem 1,000 MG in Water for inj. (sterile) 20 ML 10 ML IVP SCH (09:51)
[2017-11-11] MEDS: Pantoprazole 40 MG VIAL IVP SCH (09:53)
[2017-11-11] MEDS: FLUoxetine 20 MG CAPSULE PO SCH (09:53)
--- NOTE | 2017-11-11 12:38 | Gastroenterology Consult Note ---
<Marcelino Swann Autumn - Last Filed: 11/11/17 12:36> Date of Encounter: 11/11/17 Time of Encounter: 10:50 - Assessment and plan (1) Common bile duct (CBD) obstruction Current Visit: Yes Status: Acute Assessment and plan: IOC demonstrated distal common bile duct obstruction with no flow into the duodenum. Plan for ERCP today. Keep NPO. (2) Acalculous cholecystitis Current Visit: Yes Status: Acute Assessment and plan: POD #1 lap cholecystectomy with IOC which demonstrated distal common bile duct obstruction with no flow into the duodenum. Plan for ERCP today. (3) Elevated LFTs Current Visit: Yes Status: Acute Assessment and plan: TB 3.2, AST 145, ALT 168, and Alk phos 221. Continue to monitor hepatic panel daily. - Time Spent With Patient Total time spent is greater than 50% in coordination of care (as documented) at patient's floor/unit and/or counseling patient: GI History of Present Illness - Data of Consult Patient: new to practice Consult date: 11/11/17 Requesting Physician: Teagan Kearns MD - Consult Narrative Reason for consult: Bile duct obstruction History of present illness: Ms. Hill is a 37 year old female with PMHx of asthma, GERD, MEAGHAN, endometriosis who presented with RUQ abdominal pain for 1.5 weeks that had worsened. CT of abdomen showed a distended gallbladder. RUQ US with 6mm echogenic focus at fundus of gallbladder and dilation of CBD of 7mm. HIDA consistent with cyst duct obstruction/acute cholecystitis. Lap cholecystectomy with cholangiogram completed 11/10. IOC demonstrated distal common bile duct obstruction with no flow into the duodenum. Procedures: None NSAIDs: None Anticoagulation: None Past Med Surg Social Fam HX - Past Medical History Medical history: asthma, GERD, other (Iron deficiency anemia, endometriosis) Psychiatric history: anxiety, depression - Past Surgical History Surgical History: , other (Dental surgery) - Social History Smoking Status: Never smoker Smokeless Tobacco Status: No Alcohol use: none Drug use: none - Family History Father Living Status: Still Living Grandmother Living Status: Cause of : amyloidosis gallbladder/liver Mother Adopted: No Family Member Ethnicity: Non- Living Status: Still Living Hx Family Cardiac Disorders: No Hx Family Respiratory Disorders: Yes (asthma) Hx Family Cancer: No Hx Family GI Disorders: No Hx Family Endocrine Disorder: No Hx Family Neuromuscular Disorders: No Hx Family Neurologic Disorders: No Hx Family HEENT Disorders: No Hx Family Autoimmune Disorders: No - Gastrointestinal Gastrointestinal: Present: as per HPI - Constitutional Constitutional: as per HPI - EENT Eyes: as per HPI Ears: Present: as per HPI Nose, mouth and throat: Present: as per HPI - Cardiovascular Cardiovascular ROS: Present: as per HPI - Respiratory Respiratory IM: Present: as per HPI - Genitourinary Genitourinary: Absent: change in color, Urinary frequency - Neurological ROS Neurological GI: Present: as per HPI - Hematologic/Lymphatic Hematologic/Lymphatic pediatric: Present: as per HPI - Musculoskeletal Musculoskeletal ROS GI: Present: as per HPI - Integumentary Integumentary GI: Present: as per HPI - Psychiatric ROS Psychiatric GI: Present: as per HPI - Endocrine Endocrine IM: Present: as per HPI - Constitutional Vitals: Temp Pulse Resp BP Pulse Ox 98.1 F 59 12 132/82 97 11/11/17 10:27 11/11/17 10:27 11/11/17 10:27 11/11/17 10:27 11/11/17 10:27 General appearance: Present: cooperative, A&O X 3, no acute distress, answers questions appropriately - Head Head exam: Present: atraumatic, normocephalic - Eye Eye exam: Present: normal appearance, sclera anicteric - ENT ENT exam: Present: mucous membranes dry - Neck Neck exam general surgery: Present: normal inspection, trachea midline - Respiratory Respiratory exam: Present: CTAB. Absent: rales, rhonchi - Cardiovascular Cardiovascular exam: Present: RRR, +S1, +S2 - GI/Abdominal GI/Abdominal exam: Present: soft, tenderness (Generalized), no peritoneal signs. Absent: distended, firm, guarding - Rectal Rectal exam: Present: deferred - Extremities Exam Extremities exam: Present: warm - Neurological Exam Neurological exam: Present: no focal deficits - Psychiatric Psychiatric exam: Present: normal affect, normal mood - Skin Skin exam: Present: dry, intact, normal color, warm Results - Labs CBC & Chem 7: 11/11/17 06:41 11/11/17 06:41 Labs: Last Result Calcium 8.0 mg/dL (8.6-10.3) L 11/11/17 06:41 Triglycerides 97 mg/dL (< 150) 11/09/17 04:09 Entire Visit Hgb 9.6 g/dL (11.5-15.4) L 11/11/17 06:41 Hct 31.3 % (35.3-44.9) L 11/11/17 06:41 Total Bilirubin 3.2 mg/dL (0.3-1.0) H 11/11/17 06:41 AST 145 Units/L (13-39) H 11/11/17 06:41 ALT 168 Units/L (7-52) H 11/11/17 06:41 - Impressions Impressions Cholangiogram,Operative 11/10/17 15:05 IMPRESSION: Question of underfilling of the left hepatic ducts versus an obstructing lesion. Suboptimal visualization and probable obstruction of the distal common bile duct as no significant contrast is seen within the duodenum. D/ / Charly Hill MD / Charly Hill MD Interpreting Provider: Charly Hill MD Consult Discharge Plan - Plan Referrals: Maryellen Hill, INSULATOR HELPER [Primary Care Provider] - <Claude Virgen - Last Filed: 11/11/17 17:36> Date of Encounter: 11/11/17 Time of Encounter: 16:40 - Time Spent With Patient Total time spent is greater than 50% in coordination of care (as documented) at patient's floor/unit and/or counseling patient: GI History of Present Illness - Data of Consult Requesting Physician: Teagan Kearns MD - Consult Narrative History of present illness: Ms. Hill is a 37 year old female - Constitutional Vitals: Temp Pulse Resp BP Pulse Ox 98.2 F 80 18 145/98 95 11/11/17 16:27 11/11/17 16:27 11/11/17 16:27 11/11/17 16:27 11/11/17 16:27 Results - Labs CBC & Chem 7: 11/11/17 06:41 11/11/17 06:41 Labs: Last Result Calcium 8.0 mg/dL (8.6-10.3) L 11/11/17 06:41 Triglycerides 97 mg/dL (< 150) 11/09/17 04:09 Entire Visit Hgb 9.6 g/dL (11.5-15.4) L 11/11/17 06:41 Hct 31.3 % (35.3-44.9) L 11/11/17 06:41 Total Bilirubin 3.2 mg/dL (0.3-1.0) H 11/11/17 06:41 AST 145 Units/L (13-39) H 11/11/17 06:41 ALT 168 Units/L (7-52) H 11/11/17 06:41 - Attending Attestation I examined this patient and my medical decision-making was reviewed with the Resident Physician. I agree with the documented findings, disposition and treatment plan as described except to the extent set forth below. Pt status post laparoscopic cholecystectomy now with abnormal IOC and abnormal LFTs suspicious for a CBD stone. Plan : ERCP
--- NOTE | 2017-11-11 15:19 | Internal Med Progress Note ---
Date of Encounter: 11/11/17 Time of Encounter: 15:27 - Assessment and plan (1) Common bile duct (CBD) obstruction Current Visit: Yes Status: Acute Assessment and plan: Continues to have obstructive jaundice. Awaiting ERCP today. Moderate risk for complications. (2) Acalculous cholecystitis Current Visit: Yes Status: Acute Assessment and plan: Status post laparoscopic cholecystectomy. Doing well overall. (3) DVT prophylaxis Current Visit: Yes Status: Acute Assessment and plan: continue subcutaneous heparin - Subjective Interval history: Patient is awake and alert. Awaiting ERCP that scheduled for later today. Was tolerating diet well yesterday evening after his surgery. Pain is well controlled at this time. No fever or chills reported overnight. - Constitutional Vitals: Temp Pulse Resp BP Pulse Ox 98.1 F 59 12 132/82 97 11/11/17 10:27 11/11/17 10:27 11/11/17 10:27 11/11/17 10:27 11/11/17 10:27 General appearance: Present: A&O X 3, morbidly obese - Respiratory Respiratory exam: Present: CTAB. Absent: accessory muscle use, rales, rhonchi, wheezes - Cardiovascular Cardiovascular exam: Present: RRR, +S1, +S2. Absent: diastolic murmur, gallop, rubs, systolic murmur - GI/Abdominal GI/Abdominal exam: Present: normal bowel sounds, soft, tenderness (Right upper quadrant), no peritoneal signs. Absent: distended Internal Medicine: Result - Labs CBC & Chem 7: 11/11/17 06:41 11/11/17 06:41 Labs: Short CBC 11/11/17 Range/Units 06:41 WBC 11.9 H (4.3-11.1) K/mcL Hgb 9.6 L (11.5-15.4) g/dL Hct 31.3 L (35.3-44.9) % Plt Count 255 (140-400) K/mcL Neutrophils # 9.2 H (1.6-8.9) K/mcL BMP 11/11/17 06:41 Sodium 136 Potassium 4.0 Chloride 107 Carbon Dioxide 26 BUN 7 Creatinine 0.71 Glucose 105 Calcium 8.0 L Liver Function 11/11/17 Range/Units 06:41 Total Bilirubin 3.2 H (0.3-1.0) mg/dL AST 145 H (13-39) Units/L ALT 168 H (7-52) Units/L Alkaline Phosphatase 221 H (34-104) Units/L Albumin 3.1 L (3.5-5.7) g/dL - Impressions Impressions Cholangiogram,Operative 11/10/17 15:05 IMPRESSION: Question of underfilling of the left hepatic ducts versus an obstructing lesion. Suboptimal visualization and probable obstruction of the distal common bile duct as no significant contrast is seen within the duodenum. D/ / Charly Hill MD / Charly Hill MD Interpreting Provider: Charly Hill MD Consult Discharge Plan - Plan Referrals: Maryellen Hill, COKE WORKER [Primary Care Provider] -
[2017-11-11] MEDS ORDERED: Albuterol 2.5 MG/3 ML NEBULIZER IH ONE ×2 (15:22→16:10)
[2017-11-11] MEDS ORDERED: Indomethacin 50 MG SUPP.RECT RC ONE (16:08)
[2017-11-11] MEDS ORDERED: Albuterol 2.5 MG/3 ML NEBULIZER ONE (16:10)
[2017-11-11] MEDS: Ondansetron 4 MG/2 ML VIAL IVP PRN ×2 (16:15→18:41)
[2017-11-11] MEDS ORDERED: Ringers Solution, Lactated 1,000 ML IVC SCH (16:15)
--- NOTE | 2017-11-11 16:17 | Anesthesia Evaluation PreOp ---
Date of Encounter: 11/11/17 Time of Encounter: 16:15 - Past History Planned Operation: ERCP Cardiac History: Denies any Significant Hx, Other (Iron Def Anemia) Pulmonary History: Asthma AUTOMATION TECHNICIAN History: Denies Any Significant HX Other Medical History: GERD, Other (Depression, Obese) Anesthesia History: No Prior Anesthetic Complications : No Test: Negative Alcohol Use: none Drug use: none Medications and Allergies Cetirizine HCl [Zyrtec] 10 mg PO DAILY 05/09/16 [History] FLUoxetine HCl [Prozac] 40 mg PO BID 05/09/16 [History] Albuterol Sulfate [Albuterol Inhaler] 2 puff IH Q6HR PRN 11/07/17 [History] Fluticasone/Salmeterol [Advair Hfa 230-21 Mcg Inhaler] 1 puff IH DAILY 11/08/17 [History] Lisinopril [Zestril] 5 mg PO DAILY 11/08/17 [History] Norethindrone-Ethinyl Estrad [Alyacen 1-35-28 Tablet] 1 tab PO DAILY 11/08/17 [ History] 3 Allergy/AdvReac Type Severity Reaction Status Date / Time ciprofloxacin Allergy Severe Anaphylaxis Verified 11/07/17 21:57 Penicillins Allergy Severe Anaphylaxis Verified 11/07/17 21:57 - Meds/Allergy Pre-op Review Medications Reviewed: Yes Allergies Reviewed: Yes Beta Blockers on Current Med List: No Anesthesia Results - Labs 11/11/17 06:41 11/11/17 06:41 Laboratory Tests 11/07/17 11/11/17 11/11/17 22:19 06:41 06:41 Hgb 9.6 L Hct 31.3 L Plt Count 255 Sodium 136 Potassium 4.0 BUN 7 Creatinine 0.71 Urine Test Negative Anesthesia Exam O2 Sat Weight 112 kg O2 Sat by Pulse Oximetry 93 O2 Sat by Pulse Oximetry 97 O2 Sat by Pulse Oximetry 97 O2 Sat by Pulse Oximetry 97 O2 Sat by Pulse Oximetry 96 O2 Sat by Pulse Oximetry 95 O2 Sat by Pulse Oximetry 95 O2 Sat by Pulse Oximetry 97 O2 Sat by Pulse Oximetry 96 O2 Sat by Pulse Oximetry 94 Vital Signs Temp Pulse Resp BP Pulse Ox 97.6 F 74 17 132/90 98 11/08/17 04:07 11/08/17 04:07 11/08/17 04:07 11/08/17 04:07 11/08/17 04:07 Height: 5'10 Weight: 246 lbs NPO (# of Hours): MN Pain Scale: 0 - HEENT Pupil (Motor): Pupils equal, EOMI Mallampati: II Teeth: Normal Oral Opening: Greater than 3 - AUTOMATION TECHNICIAN LOC: Oriented AUTOMATION TECHNICIAN Motor: Normal RUE, Normal LUE, Normal RLE, Normal LLE, Normal Face AUTOMATION TECHNICIAN Sensory: Normal: RUE, LUE, RLE, LLE, Face - Cardiac Rhythm: Regular Murmur: None JVD: No Carotid Bruit: No - Pulmonary Breath Sounds: bilateral Clear Respiratory Effort: Symmetrical Anesthesia Assess/Plan ASA Score: 2 Modified [place] Scale for Level of Consciousness: Cooperative, oriented, and tranquil Anesthetic Plan: General Monitoring Plan: Standard Monitors Recovery Plan: PACU (Discussed GA, agrees to proceed)
[2017-11-11] MEDS ORDERED: Acetaminophen IV 1,000 MG/100 ML INFUS..BTL IVPB ONE (16:21)
[2017-11-11] MEDS ORDERED: *HR* FentaNYL (PF) 100 MCG/2 ML VIAL ONE ×2 (16:27→16:45)
[2017-11-11] MEDS ORDERED: *HR* Propofol 200 MG/20 ML VIAL IVP ONE (16:27)
[2017-11-11] MEDS ORDERED: *HR* Succinylcholine 200 MG/10 ML VIAL IVP ONE (16:28)
[2017-11-11] MEDS ORDERED: Lidocaine -MPF 2% 2 ML VIAL ONE (16:28)
[2017-11-11] MEDS: Albuterol 2.5 MG/3 ML NEBULIZER IH ONE (16:31)
[2017-11-11] MEDS ORDERED: Dexamethasone 4 MG/ML VIAL ONE (17:14)
--- NOTE | 2017-11-11 18:02 | Anesthesia Evaluation Post Op ---
Date of Encounter: 11/11/17 Time of Encounter: 18:02 - Vital Signs Vital Signs: Vital Signs/O2 Sat/Glucose, Most Recent Temp Pulse Resp BP Pulse Ox 99.4 F 73 16 121/76 95 11/11/17 17:33 11/11/17 17:53 11/11/17 17:53 11/11/17 17:53 11/11/17 17:53 Blood Glucose* 101 - Lungs Lungs: Clear Ascult./Percussion - Airway Airway: Non-obstructed - Cardiovascular Regular Rate - Mental Status Mental Status: Alert & Oriented, Answers Appropriately - Pain Pain Scale: 0 Pain Scale used: Numeric (1 - 10) - Nausea Vomiting Nausea Vomiting: Not Present - Hydration Hydration: Tolerates oral liquids - Discharge PostOp Status: Transfer Patient to floor
[2017-11-12] MEDS: *HR* Heparin 5,000 UNIT/ML VIAL SQ SCH ×2 (03:06→06:55)
[2017-11-12 05:48] LABS: Basophils % 0.3 %; Eosinophils % 0.1 %; Hemoglobin 9.6 g/dL (11.5-15.4); Immature Granulocytes % 0.7 % (0-4); Lymphocytes # 1.5 K/mcL (0.6-4.6); Lymphocytes % 14.3 %; Mean Platelet Volume 10.4 fL (9.4-12.4); Monocytes # 0.6 K/mcL (0.0-1.3); Monocytes % 5.8 %; Neutrophils # 8.1 K/mcL (1.6-8.9); Platelet Count 265 K/mcL (140-400); Red Cell Distribution Width 23.7 % (11.5-14.5); Segmented Neutrophils % 78.8 %
[2017-11-12 06:05] LABS: Alanine Aminotransferase 153 Units/L (7-52); Albumin 3.2 g/dL (3.5-5.7); Albumin/Globulin Ratio 1.3 (1.1-2.2); Alkaline Phosphatase 219 Units/L (34-104); Aspartate Amino Transferase 79 Units/L (13-39); BUN/Creatinine Ratio 12 (6-26); Bilirubin,Direct 0.6 mg/dL (0.0-0.2); Bilirubin,Indirect 0.6 mg/dL (0.0-1.2); Bilirubin,Total 1.2 mg/dL (0.3-1.0); Blood Urea Nitrogen 8 mg/dL (6-20); Calcium 8.2 mg/dL (8.6-10.3); Carbon Dioxide 25 mEq/L (23-29); Chloride 108 mEq/L (98-107); Globulin 2.5 g/dL (2.4-3.5); Glucose 86 mg/dL (70-105); Osmolality,Calculated 284 (280-300); Sodium 138 mEq/L (136-145); Total Protein 5.7 g/dL (6.4-8.9); eGFR For African Americans > 60 (> 60); eGFR For Non-African Americans > 60 (> 60)
[2017-11-12 06:16] LABS: Anisocytosis 2+ (Not Present); Hypochromasia Present (Not Present); Microcytosis Present (Not Present); Platelet Estimate Normal (Normal)
[2017-11-12 06:17] LABS: Large Platelets Present (Not Present)
[2017-11-12 07:11] VITALS: BP 115/74
[2017-11-12] MEDS: Ertapenem 1,000 MG in Water for inj. (sterile) 20 ML 10 ML IVP SCH (08:07)
[2017-11-12] MEDS: Ketorolac 30 MG/ML VIAL IVP PRN (08:08)
[2017-11-12] MEDS: Pantoprazole 40 MG VIAL IVP SCH (08:08)
[2017-11-12] MEDS: FLUoxetine 20 MG CAPSULE PO SCH (08:08)
--- NOTE | 2017-11-12 10:19 | Discharge Summary ---
Date of Encounter: 11/12/17 Time of Encounter: 10:13 - Discharge Diagnosis (1) Acalculous cholecystitis Priority: Primary Status: Resolved (2) Common bile duct (CBD) obstruction Priority: Secondary Status: Resolved - Discharge Medications Prescriptions: Ondansetron ODT [Zofran ODT] 4 mg SL Q4HR PRN #15 tab.rapdis PRN Reason: Nausea OxyCODONE/APAP 5/325 [Percocet 5/325 MG] 1 each PO Q6HR PRN #28 tablet PRN Reason: Pain Ibuprofen [Motrin] 800 mg PO Q8HR #42 tablet Docusate [Colace] 100 mg PO BID #30 capsule Home Medications: Cetirizine HCl [Zyrtec] 10 mg PO DAILY 05/09/16 [History] FLUoxetine HCl [Prozac] 40 mg PO BID 05/09/16 [History] Albuterol Sulfate [Albuterol Inhaler] 2 puff IH Q6HR PRN 11/07/17 [History] Fluticasone/Salmeterol [Advair Hfa 230-21 Mcg Inhaler] 1 puff IH DAILY 11/08/17 [History] Lisinopril [Zestril] 5 mg PO DAILY 11/08/17 [History] Norethindrone-Ethinyl Estrad [Alyacen 1-35-28 Tablet] 1 tab PO DAILY 11/08/17 [ History] Docusate [Colace] 100 mg PO BID #30 capsule 11/12/17 [Rx] Ibuprofen [Motrin] 800 mg PO Q8HR #42 tablet 11/12/17 [Rx] Ondansetron ODT [Zofran ODT] 4 mg SL Q4HR PRN #15 tab.rapdis 11/12/17 [Rx] OxyCODONE/APAP 5/325 [Percocet 5/325 MG] 1 each PO Q6HR PRN #28 tablet 11/12/17 [Rx] Allergies/Adverse Reactions: 3 Allergy/AdvReac Type Severity Reaction Status Date / Time ciprofloxacin Allergy Severe Anaphylaxis Verified 11/07/17 21:57 Penicillins Allergy Severe Anaphylaxis Verified 11/07/17 21:57 General Surgery Exam Initial Vital Signs Temp Pulse Resp BP Pulse Ox 97.6 F 74 17 132/90 98 11/08/17 04:07 11/08/17 04:07 11/08/17 04:07 11/08/17 04:07 11/08/17 04:07 - General physical appearance well developed, well nourished, no distress, no pain - Neck trachea midline, no venous distension - Respiratory normal expansion, normal respiratory effort, clear to auscultation - Cardiovascular Cardiovascular exam: Present: RRR, 15, 16 - Abdomen Abdomen general surgery: Present: bowel sounds present, soft, tender (Expected postoperative) - Incision Incision: Present: clean and dry, intact - Integumentary Integumentary general surgery: Present: warm and dry, no abnormal pigmentation - Neurologic Present: CN 2-12 grossly intact, normal coordination, normal sensation - Musculoskeletal Present: normal gait, normal posture - Psychiatric Psychiatric general surgery: Present: A&Ox3, appropriate, oriented to person, oriented to place, oriented to time, speech is normal, memory intact Date of admission: 11/11/17 18:09 Primary care physician: Maryellen Hill CNP Consults: 11/08/17 04:32 Consult to Surgery [CONS] Routine Consulting Provider: Lino Vazquez Reason for Consult: RUQ pain , called by ER in [place] Call Completed: No 11/11/17 08:07 Consult to Gastroenterology [CONS] Stat Consulting Provider: Gastroenterology Jessica Reason for Consult: Bile duct obstruction Call Completed: Yes Discharging clinician: Lino Vazquez (Jie Hinton) Anticipated date of discharge: 11/12/17 - Patient Status Disposition: Home, Self-Care Condition: Good Functional capacity at discharge: independent ambulation Overall status at discharge: patient is progressing back to baseline - Discharge Instructions Instructions: Laparoscopic Cholecystectomy (DC) Follow Up With: Maryellen Hill CNP [Primary Care Provider] - Tigist Hinton CNP [Advanced Practice Nurse] - 11/27/17 9:00 am Forms: Inpatient Work/School Release Additional Instructions: General Surgical Discharge Instructions 1. No pushing, pulling, or lifting greater than 15 lbs for 2-4 weeks (depending upon procedure). 2. You may shower beginning today, but no tub baths, soaking, or swimming for 2 weeks. 3. You may resume driving when you are off narcotics and are safe to react in a car. 4. Take ibuprofen every 8 hours for discomfort. If this does not relieve discomfort, you may take the as needed Percocet. Take narcotics as directed. Do not take more narcotics then directed and do not share your narcotics with any other person. Do not drink alcohol while on narcotics. 5. Take stool softeners (Colace) or a water based laxative (Miralax) while taking narcotics. You may hold for loose stools. 6. Report any fevers greater than 100.5F, increase abdominal discomfort, drainage that looks like pus, increased redness or pain at the surgical site, or any vomiting. 7. Report any pain in the calves, shortness of breath, or rapid heartbeat. 8. Follow-up in the office as directed. 9. If you were prescribed antibiotics, do not stop them without talking to your provider. - Diet and Activity Activity: increase activity as tolerated Diet: advance to your usual diet - Hospital Course Hospital course: Ms. Hill is a 37 year old female presented on 11/08/2017 for complaints of right upper quadrant pain. She was noted to have a calculus cholecystitis per CT, patio really airy scan noted and non-visualized gallbladder after administration of IV morphine consistent with cystic duct obstruction in acute cholecystitis, her right upper quadrant ultrasound revealed a 6 mm echogenic focus on the fundus of the gallbladder. She was taken to the operating room where she underwent a laparoscopic cholecystectomy and intraoperative choliangiogram which revealed an obstruction in the common bile duct. G.I. was consulted and the patient underwent an ERCP at which time she was noted to have an obstruction. An 8 mm biliary sphincterotomy was made and the tree was swept with a balloon. One stone was removed. No stents were placed. Her white blood cell count is normal. Her liver functions are improving and her bilirubin is decreasing. She is emulating and voiding without difficulty. She has tolerating a diet and liquids without nausea or vomiting, she is afebrile and her vital signs are stable. She is passing flatus. And requests DC to home at this time. We will begin discharge planning to home with a follow-up in the office in 2 weeks. - Time Spent with Patient Total time spent providing and/or coordinating discharge services: Labs on day of discharge: Labs from last 24 hours 11/12/17 11/12/17 11/12/17 05:26 05:10 05:10 WBC 10.3 RBC 4.00 Hgb 9.6 L Hct 32.0 L MCV 80.0 L MCH 24.0 L MCHC 30.0 L RDW 23.7 H Plt Count 265 MPV 10.4 Immature Gran % 0.7 Seg Neutrophils % 78.8 Lymphocytes % 14.3 Monocytes % 5.8 Eosinophils % 0.1 Basophils % 0.3 Neutrophils # 8.1 Lymphocytes # 1.5 Monocytes # 0.6 Eosinophils # 0.0 Basophils # 0.0 Platelet Estimate Normal Large Platelets Present A Hypochromasia Present A Anisocytosis 2+ A Microcytosis Present A Sodium 138 Potassium 4.0 Chloride 108 H Carbon Dioxide 25 BUN 8 Creatinine 0.69 Est GFR ( Amer) > 60 Est GFR (Non-Af Amer) > 60 BUN/Creatinine Ratio 12 Glucose 86 POC Glucose 85 Calculated Osmolality 284 Calcium 8.2 L Total Bilirubin 1.2 H Direct Bilirubin 0.6 H Indirect Bilirubin 0.6 AST 79 H ALT 153 H Alkaline Phosphatase 219 H Serum Total Protein 5.7 L Albumin 3.2 L Globulin 2.5 Albumin/Globulin Ratio 1.3 11/12/17 11/11/17 00:22 12:28 WBC RBC Hgb Hct MCV MCH MCHC RDW Plt Count MPV Immature Gran % Seg Neutrophils % Lymphocytes % Monocytes % Eosinophils % Basophils % Neutrophils # Lymphocytes # Monocytes # Eosinophils # Basophils # Platelet Estimate Large Platelets Hypochromasia Anisocytosis Microcytosis Sodium Potassium Chloride Carbon Dioxide BUN Creatinine Est GFR ( Amer) Est GFR (Non-Af Amer) BUN/Creatinine Ratio Glucose POC Glucose 117 H 101 H Calculated Osmolality Calcium Total Bilirubin Direct Bilirubin Indirect Bilirubin AST ALT Alkaline Phosphatase Serum Total Protein Albumin Globulin Albumin/Globulin Ratio - Impressions ITS Impressions Bile Acid Absorption NM 11/09/17 10:42 IMPRESSION: Nonvisualized gallbladder including after administration of IV morphine consistent with cyst duct obstruction/acute cholecystitis. The findings were sent to the Radiology Results Communication Center at 1:14 pm on 11/09/2017to be communicated to a licensed caregiver. D/ / Marie Reynolds MD / Marie Reynolds MD Interpreting Provider: Marie Reynolds MD Abdomen Ultrasound 11/09/17 12:30 IMPRESSION: There is a 6 mm echogenic focus at the fundus of the gallbladder. Findings may represent non mobile stone versus a polyp. A polyp of this size would be followed with serial ultrasound evaluation at 3, 6 and 12 months. There is dilation of the common bile duct which measures approximately 7 mm. Please correlate with patient's liver function tests and bilirubin level. If these are abnormal or if clinically indicated, follow-up could be considered with a MRCP. D/ / 11/09/2017 13:37:57 Wayne Obregon MD / karen Interpreting Provider: Wayne Obregon MD Cholangiogram,Operative 11/10/17 15:05 IMPRESSION: Question of underfilling of the left hepatic ducts versus an obstructing lesion. Suboptimal visualization and probable obstruction of the distal common bile duct as no significant contrast is seen within the duodenum. D/ / Charly Hill MD / Charly Hill MD Interpreting Provider: Charly Hill MD X-Ray 11/11/17 00:00 IMPRESSION: ERCP images demonstrate stone removal. Please see operative report for further details. D/ / Nikita Boothe MD / Nikita Boothe MD Interpreting Provider: Nikita Boothe MD
== END 2017-11-12 13:06 | disposition home or self-care (01) | DRG 263 ==
LOC: 3ANU
PROVIDERS: ADMIT Internal Medicine; ATTEND Student in an Organized Health Care Education/Training Program

== ENCOUNTER 2020-12-04 14:24 | Inpatient (IN) ==
[2020-12-04] MEDS ORDERED: 0.9 % Sodium Chloride 1,000 ML IVC ONE (14:33)
[2020-12-04 15:01] LABS: INR 1.1; Prothrombin Time 13.1 Seconds (9.4-12.1)
[2020-12-04 15:04] LABS: Activated Partial Thrombo Time 28.1 Seconds (26.0-36.0); Mean Corpuscular Hemoglobin 14.3 pg (28.0-33.3); Red Cell Distribution Width 20.7 % (11.5-14.5); Segmented Neutrophils % 67.8 %
[2020-12-04 15:06] LABS: Basophils # 0.1 K/mcL (0.0-0.2); Basophils % 0.7 %; Eosinophils # 0.4 K/mcL (0.0-0.6); Eosinophils % 4.1 %; Hematocrit 24.7 % (35.3-44.9); Immature Granulocytes % 0.4 % (0-4); Immature Platelets 3.6 % (1.1-6.1); Lymphocytes # 2.1 K/mcL (0.6-4.6); Lymphocytes % 20.5 %; Mean Corpuscular HGB Conc 24.3 g/dL (31.6-35.5); Mean Corpuscular Volume 58.7 fL (83.0-100.0); Mean Platelet Volume 9.9 fL (9.4-12.4); Monocytes # 0.7 K/mcL (0.0-1.3); Monocytes % 6.5 %; Neutrophils # 7.1 K/mcL (1.6-8.9); Platelet Count 413 K/mcL (140-400); Red Blood Count 4.21 M/mcL (3.82-4.97); White Blood Count 10.4 K/mcL (4.3-11.1)
[2020-12-04 15:25] LABS: BUN/Creatinine Ratio 12 (6-26); Blood Urea Nitrogen 9 mg/dL (6-20); Calcium 8.5 mg/dL (8.6-10.3); Carbon Dioxide 22 mEq/L (23-29); Chloride 108 mEq/L (98-107); Glucose 108 mg/dL (70-105); Osmolality,Calculated 283 (280-300); Potassium 3.8 mEq/L (3.5-5.1); Sodium 137 mEq/L (136-145); Troponin I < 0.03 ng/mL (< 0.04); eGFR For African Americans > 60 (> 60); eGFR For Non-African Americans > 60 (> 60)
[2020-12-04 16:03] LABS: Hypochromasia Present (Not Present); Ovalocytes 1+ (Not Present); Polychromasia 1+ (Not Present)
[2020-12-04 16:04] LABS: Microcytosis Present (Not Present)
[2020-12-04] MEDS ORDERED: Naloxone 0.4 MG/ML INJ IVP PRN (16:59)
[2020-12-04] MEDS ORDERED: Ondansetron ODT 4 MG TAB.RAPDIS SL PRN (16:59)
[2020-12-04] MEDS ORDERED: Ibuprofen 400 MG TABLET PO PRN (18:36)
[2020-12-04 18:40] LABS: Immature Reticulocyte % 19.9 % (11.0-38.0); Retculocyte # 0.07 M/mcL (0.05-0.10); Reticulocyte % 1.6 % (1.6-2.8)
[2020-12-04 18:51] LABS: Alanine Aminotransferase 11 Units/L (7-52); Albumin/Globulin Ratio 1.3 (1.1-2.2); Alkaline Phosphatase 82 Units/L (34-104); Aspartate Amino Transferase 12 Units/L (13-39); Bilirubin,Direct 0.1 mg/dL (0.0-0.2); Bilirubin,Indirect 0.2 mg/dL (0.0-1.0); Bilirubin,Total 0.3 mg/dL (0.3-1.0); Ferritin < 8 ng/mL (10-120); Iron < 10 mcg/dL (50-170); Thyroid Stimulating Hormone 2.309 mcIU/mL (0.340-5.600); Transferrin 346 mg/dL (203-362)
[2020-12-04 22:15] LABS: Hematocrit 29.1 % (35.3-44.9)
[2020-12-04 22:16] LABS: Hemoglobin 7.9 g/dL (11.5-15.4)
[2020-12-04] MEDS ORDERED: 0.9 % Sodium Chloride 250 ML ONE (22:23)
[2020-12-04 22:33] LABS: Basophils # 0.1 K/mcL (0.0-0.2); Basophils % 0.5 %; Eosinophils # 0.4 K/mcL (0.0-0.6); Eosinophils % 3.3 %; Hematocrit 28.9 % (35.3-44.9); Hemoglobin 7.7 g/dL (11.5-15.4); Immature Granulocytes % 0.3 % (0-4); Lymphocytes # 2.9 K/mcL (0.6-4.6); Lymphocytes % 23.1 %; Mean Corpuscular HGB Conc 26.6 g/dL (31.6-35.5); Mean Corpuscular Hemoglobin 16.8 pg (28.0-33.3); Mean Platelet Volume 10.4 fL (9.4-12.4); Monocytes # 0.9 K/mcL (0.0-1.3); Monocytes % 6.9 %; Neutrophils # 8.2 K/mcL (1.6-8.9); Platelet Count 438 K/mcL (140-400); Red Blood Count 4.59 M/mcL (3.82-4.97); Red Cell Distribution Width 27.2 % (11.5-14.5); Segmented Neutrophils % 65.9 %; White Blood Count 12.4 K/mcL (4.3-11.1)
[2020-12-04 22:38] LABS: Hypochromasia Present (Not Present); Polychromasia 1+ (Not Present)
[2020-12-04 22:39] LABS: Microcytosis Present (Not Present)
[2020-12-04 23:06] LABS: Folate > 22.3 ng/mL (3.0-16.0); Vitamin B12 301 pg/mL (250-1100)
[2020-12-04] MEDS: Acetaminophen 325 MG TABLET PO PRN (23:07)
[2020-12-05 02:26] LABS: Hemoglobin 8.5 g/dL (11.5-15.4); Immature Granulocytes % 0.3 % (0-4)
[2020-12-05 02:27] LABS: Basophils # 0.1 K/mcL (0.0-0.2); Basophils % 0.5 %; Eosinophils # 0.4 K/mcL (0.0-0.6); Eosinophils % 3.1 %; Hematocrit 30.7 % (35.3-44.9); Immature Platelets 2.5 % (1.1-6.1); Lymphocytes # 3.1 K/mcL (0.6-4.6); Lymphocytes % 27.1 %; Mean Corpuscular HGB Conc 27.7 g/dL (31.6-35.5); Mean Corpuscular Hemoglobin 17.9 pg (28.0-33.3); Mean Corpuscular Volume 64.8 fL (83.0-100.0); Mean Platelet Volume 9.9 fL (9.4-12.4); Monocytes # 0.9 K/mcL (0.0-1.3); Monocytes % 7.7 %; Neutrophils # 7.1 K/mcL (1.6-8.9); Platelet Count 389 K/mcL (140-400); Red Blood Count 4.74 M/mcL (3.82-4.97); Red Cell Distribution Width 27.9 % (11.5-14.5); Segmented Neutrophils % 61.3 %; White Blood Count 11.6 K/mcL (4.3-11.1)
[2020-12-05 03:01] LABS: Alanine Aminotransferase 11 Units/L (7-52); Albumin 3.8 g/dL (3.5-5.7); Albumin/Globulin Ratio 1.4 (1.1-2.2); Alkaline Phosphatase 76 Units/L (34-104); Aspartate Amino Transferase 12 Units/L (13-39); BUN/Creatinine Ratio 12 (6-26); Blood Urea Nitrogen 9 mg/dL (6-20); Calcium 8.5 mg/dL (8.6-10.3); Carbon Dioxide 22 mEq/L (23-29); Chloride 108 mEq/L (98-107); Globulin 2.7 g/dL (2.4-3.5); Glucose 88 mg/dL (70-105); Osmolality,Calculated 284 (280-300); Potassium 3.8 mEq/L (3.5-5.1); Sodium 138 mEq/L (136-145); Total Protein 6.5 g/dL (6.4-8.9); Troponin I < 0.03 ng/mL (< 0.04); eGFR For African Americans > 60 (> 60); eGFR For Non-African Americans > 60 (> 60)
[2020-12-05 04:20] LABS: Anisocytosis 1+ (Not Present); Hypochromasia Present (Not Present)
[2020-12-05 04:21] LABS: Microcytosis Present (Not Present); Platelet Estimate Normal (Normal); Poikilocytosis 1+ (Not Present)
[2020-12-05] MEDS: Acetaminophen 325 MG TABLET PO PRN ×2 (08:25→20:03)
[2020-12-05 12:53] LABS: Hemoglobin 8.9 g/dL (11.5-15.4)
[2020-12-05 12:55] LABS: Hematocrit 31.8 % (35.3-44.9)
[2020-12-06 02:32] LABS: Eosinophils % 4.4 %; Red Cell Distribution Width 28.3 % (11.5-14.5)
[2020-12-06 02:34] LABS: Basophils # 0.1 K/mcL (0.0-0.2); Basophils % 0.6 %; Eosinophils # 0.6 K/mcL (0.0-0.6); Hematocrit 34.4 % (35.3-44.9); Hemoglobin 9.3 g/dL (11.5-15.4); Immature Granulocytes % 0.4 % (0-4); Immature Platelets 3.4 % (1.1-6.1); Lymphocytes # 2.8 K/mcL (0.6-4.6); Lymphocytes % 21.8 %; Mean Corpuscular Hemoglobin 17.5 pg (28.0-33.3); Mean Corpuscular Volume 64.9 fL (83.0-100.0); Mean Platelet Volume 9.7 fL (9.4-12.4); Monocytes # 0.9 K/mcL (0.0-1.3); Monocytes % 7.3 %; Neutrophils # 8.5 K/mcL (1.6-8.9); Platelet Count 401 K/mcL (140-400); Segmented Neutrophils % 65.5 %; White Blood Count 12.9 K/mcL (4.3-11.1)
[2020-12-06 02:52] LABS: BUN/Creatinine Ratio 11 (6-26); Blood Urea Nitrogen 11 mg/dL (6-20); Calcium 9.4 mg/dL (8.6-10.3); Carbon Dioxide 24 mEq/L (23-29); Chloride 108 mEq/L (98-107); Glucose 101 mg/dL (70-105); Osmolality,Calculated 288 (280-300); Potassium 3.9 mEq/L (3.5-5.1); Sodium 139 mEq/L (136-145); eGFR For African Americans > 60 (> 60); eGFR For Non-African Americans > 60 (> 60)
[2020-12-06 04:34] LABS: Anisocytosis 3+ (Not Present); Hypochromasia Present (Not Present); Microcytosis Present (Not Present); Platelet Estimate Normal (Normal)
[2020-12-06 07:15] VITALS: BP 149/84
[2020-12-06] MEDS ORDERED: Loratadine 10 MG TABLET PO SCH (09:00)
[2020-12-06] MEDS ORDERED: FLUoxetine 20 MG CAPSULE PO SCH (09:00)
[2020-12-06] MEDS ORDERED: Budesonide/Formoterol 160/4.5 1 PUFF INH IH SCH (12:00)
[2020-12-06] MEDS ORDERED: cloNIDine HCL 0.1 MG TABLET PO SCH (21:00)
== END 2020-12-06 10:16 | disposition home or self-care (01) | DRG 663 ==
LOC: EMEROOARM 14:24 → 3ANU 14:24 → SUATTDRO 16:49 → 3ANU 17:24
PROVIDERS: ADMIT Student in an Organized Health Care Education/Training Program; ATTEND Internal Medicine